=== PATIENT | female | born 1980 | race American Indian/Alaskan Native ===

== ENCOUNTER 2018-03-29 10:48 | Day surgery (SDC) | payer BC, MEDICAID ==
[~2018-03-29 10:48] MED LIST: LACTATED RINGERS 1,000 ML IV SCH; OMNIPAQUE 300 MG/50 ML (CATH LAB) IV ONE; VERSED IV NR; WATER FOR IRRIG STERILE IR ONE
[2018-03-29] MEDS ORDERED: XYLOCAINE MPF 2% ONE (11:58)
[2018-03-29] MEDS ORDERED: SUBLIMAZE ONE (11:59)
[2018-03-29] MEDS ORDERED: DIPRIVAN 10 MG/ML IV ONE (11:59)
[2018-03-29] MEDS ORDERED: NACL BACTERIOSTATIC INFILTRATI ONE (12:04)
[2018-03-29 12:45] LABS: INR 0.87 (0.87-1.13)
--- NOTE | 2018-03-29 12:47 | Anesthesia Day of Surgery ---
Anesthesia Day of Surgery - Day of Surgery Patient Examined: Yes Patient H&P Reviewed: Yes Patient is NPO: Yes
[2018-03-29] MEDS ORDERED: DILAUDID IV PRN (12:48)
[2018-03-29] MEDS ORDERED: ZOFRAN IV PRN (12:48)
--- NOTE | 2018-03-29 12:48 | Anesthesia Consultation ---
Anesthesia Consult and Med Hx Date of service: 03/29/18 - Airway Anesthetic Teeth Evaluation: Good ROM Head & Neck: Adequate Mental/Hyoid Distance: Adequate Mallampati Class: Class III Intubation Access Assessment: Possibly Difficult - Pulmonary Exam CTA: Yes - Cardiac Exam Cardiac Exam: RRR - Pre-Operative Health Status ASA Pre-Surgery Classification: ASA3 Proposed Anesthetic Plan: General (pt has JUANITA, GERD controlled will give pepcid in preop) - Pulmonary Hx Smoking: No Hx Asthma: Yes (DAILY INHALERS) SOB: Yes COPD: No Hx Sleep Apnea: Yes (DX SLEEP APNEA WITH CPAP USE.) - Cardiovascular System Hx Hypertension: Yes (X 10 YRS) Hx Heart Attack/AMI: No Hx Pacemaker: No - Central Nervous System 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
[2018-03-29 12:56] LABS: Partial Thromboplastin Time < 20.0 Sec. (24.2-36.6)
[2018-03-29] MEDS ORDERED: PEPCID IV NR (13:00)
[2018-03-29 13:20] LABS: INR 0.94 (0.87-1.13)
[2018-03-29 13:21] LABS: Partial Thromboplastin Time 26.3 Sec. (24.2-36.6)
[2018-03-29] MEDS ORDERED: ANCEF/STERILE WATER 2 GM/20 ML IV NR (13:32)
[2018-03-29] MEDS ORDERED: ANCEF/STERILE WATER 2 GM/20 ML 2 GM/20 ML SYRINGE IV ONE (13:38)
[2018-03-29] MEDS ORDERED: ZOFRAN ONE (13:52)
[2018-03-29] MEDS ORDERED: WATER FOR IRRIG STERILE IR ONE ×2 (14:01→14:08)
[2018-03-29] MEDS ORDERED: OMNIPAQUE 300 MG/50 ML (CATH LAB) IV ONE (14:09)
--- NOTE | 2018-03-29 14:29 | Short Stay Summary ---
Short Stay Documentation Date of service: 03/29/18 - History H&P: obtained from office - Allergies and Medications Current Medications: Allergies grass pollen Allergy (Verified 03/22/18 16:06) Shortness of Breath CAUSES ASTHMA ATTACK , MUST USE EPI PEN NSAIDS (Non-Steroidal Anti-Inflamma Allergy (Verified 03/22/18 16:06) Swelling , PAIN adhesive tape Adverse Reaction (Verified 03/29/18 12:38) Rash STEROIDS Allergy (Uncoded 03/22/18 16:06) Swelling, PAIN TREES Allergy (Uncoded 03/22/18 16:06) Shortness of Breath ASTHMA ATTACK- USES EPI-PEN Home Medications Medication Instructions Recorded Confirmed Last Taken Type Cyclobenzaprine [Flexeril] 10 mg PO DAILY 12/29/13 03/22/18 03/28/18 History Diltiazem HCl [Diltiazem 24Hr ER] 360 mg PO DAILY 12/29/13 03/29/18 03/29/18 09: 00 History Hydrochlorothiazide 25 mg PO PRN PRN 12/29/13 03/22/18 03/28/18 History Montelukast [Singulair] 10 mg PO DAILY 12/29/13 03/29/18 03/29/18 09:00 History Pentosan Polysulfate Sodium 100 mg PO BID 12/29/13 03/29/18 03/29/18 09:00 History [Elmiron] ALBUTEROL Inhaler [Proair] 2 puff IH QID PRN 03/22/18 03/29/18 03/29/18 09:00 History Apixaban [Eliquis] 5 mg PO BID 03/22/18 03/29/18 03/22/18 History AtorvaSTATin [Lipitor] 10 mg PO QHS 03/22/18 03/22/18 03/28/18 History Budesoni/Formoterol 80-4.5(Nf) 2 puff IH DAILY 03/22/18 03/29/18 03/28/18 History [Symbicort 80-4.5 (Nf)] Dexlansoprazole [Dexilant] 60 mg PO QDAY 03/22/18 03/29/18 03/29/18 09:00 History Diazepam [Valium] 5 mg PO BID 03/22/18 03/29/18 03/29/18 09:00 History Duloxetine HCl [Cymbalta] 60 mg PO DAILY 03/22/18 03/22/18 03/28/18 History EPINEPHrine [Epipen] 0.3 mg IJ PRN PRN 03/22/18 03/29/18 1 Month Ago History ~02/27/18 Fluticasone [Flonase] 1 spray NS QDAY 03/22/18 03/29/18 03/28/18 History Ipratropium/Albuterol Sulfate 1 ampul IH Q6HR PRN 03/22/18 03/29/18 1 Month Ago History [DUONEB *Not for PRN Use*] ~02/27/18 Meth/Meblue/Sod Phos/Psal/Hyos 1 each PO PRN PRN 03/22/18 03/29/18 03/25/18 History [Uro-Mp Capsule] Potassium Chloride [K-Dur] 20 meq PO BID 03/22/18 03/22/18 03/28/18 History Pregabalin [Lyrica] 150 mg PO BID 03/22/18 03/22/18 03/28/18 History Promethazine [Phenergan TAB] 25 mg PO Q6HR PRN 03/22/18 03/29/18 1 Month Ago History ~02/27/18 Ranitidine HCl [Zantac 150 MG TAB] 150 mg PO DAILY 03/22/18 03/29/18 1 Month Ago History ~02/27/18 Rizatriptan Benzoate [Maxalt] 10 mg PO PRN PRN 03/22/18 03/29/18 1 Week Ago History ~03/22/18 Topiramate [Topamax TAB] 25 mg PO BID 03/22/18 03/22/18 03/28/18 History metFORMIN [Glucophage] 500 mg PO BID 03/22/18 03/22/18 03/28/18 History Levocetirizine Dihydrochloride 5 mg PO DAILY 03/29/18 03/29/18 03/29/18 09:00 History [Xyzal] Active Medications Cefazolin Sodium (Ancef/Sterile Water 2 Gm/20 Ml) 2 gm IV PREOP NR Stop: 03/29/18 23:00 Famotidine (Pepcid) 20 mg IV PREOP NR Stop: 03/29/18 23:59 Last Admin: 05/22/18 13:06 Dose: 20 mg Hydromorphone HCl (Dilaudid) 0.25 mg IV Q10MIN PRN PRN Reason: Pain, Moderate (4-6) Stop: 03/29/18 23:59 Lactated Ringer's (Lactated Ringers) 1,000 mls @ 100 mls/hr IV DIRECT IVONNE Last Admin: 03/29/18 12:10 Dose: 100 mls/hr Midazolam HCl (Versed) 2 mg IV PREOP NR Stop: 03/29/18 23:59 Last Admin: 03/29/18 13:09 Dose: 2 mg Ondansetron HCl (Zofran) 4 mg IV ONCE PRN PRN Reason: Nausea And Vomiting - Brief post op/procedure progress note Date of procedure: 03/29/18 Pre-op diagnosis: ic, ngb Post-op diagnosis: same Procedure: cysto hdst rpg Anesthesia: GETA Findings: glomerulations Surgeon: DORENE EDWARDS Estimated blood loss: minimal Pathology: none Condition: stable - Hospital course Hospital course: orpacuhome - Disposition Condition at discharge: Good Disposition: DC-01 TO HOME OR SELFCARE Short Stay Discharge Plan Activity: advance as tolerated Diet: advance as tolerated Follow up with: DORENE EDWARDS MD [Staff Physician] - 7 Days
[2018-03-29] MEDS ORDERED: NORCO 5/325 PO ONE (15:45)
[2018-03-29 16:21] VITALS: BP 130/81
--- NOTE | 2018-03-30 07:43 | Fluoroscopy Report ---
FLUOROSCOPY RETROGRADE UROGRAPHY: HISTORY: Interstitial cystitis. FINDINGS: Fluoroscopy was provided by radiology during retrograde urography by the urologist. 8 fluoroscopic images were captured. There is adequate filling of the ureters and intrarenal collecting systems with no filling defects or anatomic abnormalities identified. Please correlate with the procedural report if needed. IMPRESSION: Retrograde pyelograms within normal limits.
--- NOTE | 2018-03-30 10:16 | Operative Report ---
PREOPERATIVE DIAGNOSES: 1. Neurogenic bladder. 2. Interstitial cystitis. POSTOPERATIVE DIAGNOSES: 1. Neurogenic bladder. 2. Interstitial cystitis. SURGEON: Yuval Peng MD ANESTHESIA: General. SPECIMEN: None. ESTIMATED BLOOD LOSS: Minimal. IMPLANTS: None. COMPLICATIONS: None. FINDINGS: Glomerulation. PROCEDURE: Cystoscopy, RPG, hydrodistention. CLINICAL INDICATION: The patient counseled on RCBA, antibiotics, SCDs, including that this has a reasonable chance of making things worse, but she has had these hydrodistentions with her InterStim on multiple occasions, ____ well documented with significant improvement. She was counseled and set up for this procedure, antibiotics, SCDs. DESCRIPTION OF PROCEDURE: The patient was transferred to OR suite in supine position, anesthesia, dorsal lithotomy, prepped and draped in standard fashion. A 22-Mal[place] scope passed. Pancystoscopy 30 and 70 lens demonstrated no tumors, lesions, or other abnormality. Right UO cannulated 8 [place] cone-tipped catheter, contrast injected. Normal right distal ureter, proximal ureter, renal pelvis, calyces, no filling defects or hydronephrosis. Repeated on the left side with similar normal findings. At this point, we did our bladder, hydrodistention, the bladder was hydrodistended, held and then drained. A repeat hydrodistention was performed. It was held, then drained. Inspection of the bladder did demonstrate some glomerulations throughout the bladder. Bladder was irrigated several times. No other abnormalities. Scope was withdrawn. Exam under anesthesia, no palpable urethral masses. The patient was awakened and transferred to PACU in good and stable condition. JOB# [id number] ATS/NTS
== END 2018-03-29 16:17 | disposition home or self-care (01) ==
LOC: OR 10:48
PROVIDERS: ATTEND Urology
DX: N30.10 Interstitial cystitis (chronic) without hematuria (principal); N31.9 Neuromuscular dysfunction of bladder, unspecified; J45.909 Unspecified asthma, uncomplicated; G47.30 Sleep apnea, unspecified; K21.9 Gastro-esophageal reflux disease without esophagitis; I69.954 Hemiplegia and hemiparesis following unspecified cerebrovascular disease affecting left non-dominant side; I10 Essential (primary) hypertension; Z79.899 Other long term (current) drug therapy; Z79.01 Long term (current) use of anticoagulants; Z88.6 Allergy status to analgesic agent; Z91.048 Other nonmedicinal substance allergy status
CPT/HCPCS: 36415; 52260; 74420; 81025; 82962; 84132; 85610; 85730; A4217; C1758; J0690; J2250; J2405; J2704; J3010; J7120; Q9967